=== PATIENT | female | born 1970 | race Caucasian/White ===

== ENCOUNTER 2017-09-05 10:51 | Emergency (ER) | payer BC ==
[2017-09-05 10:56] VITALS: BMI 22.4
[2017-09-05] MEDS ORDERED: KETOROLAC TROMETHAMINE 15 MG/ML VIAL ONE (11:07)
[2017-09-05] MEDS ORDERED: KETOROLAC TROMETHAMINE 15 MG/ML VIAL IVPUSH ONE (11:09)
[2017-09-05] MEDS ORDERED: SODIUM CHLORIDE 1,000 ML IV STA ×2 (11:09→13:28)
[2017-09-05] MEDS ORDERED: TAMSULOSIN HCL 0.4 MG CAP.ER.24H (FP) ONE (11:24)
[2017-09-05 11:25] LABS: BASO % 0.7 % (0-2.0); EOS % 0.2 % (0-4.5); HEMOGLOBIN 13.8 GM/dL (10.7-15.3); LYMPH % 22.2 % (8-40); MCH 30.2 pg (25.7-33.7); MCHC 35.4 g/dl (32.0-36.0); MEAN CELL VOLUME 85.4 fl (80-96); MEAN PLT VOLUME 7.2 fl (7.5-11.1); MONO % 7.7 % (3.8-10.2); NEUT % 69.2 % (42.8-82.8); PLATELET COUNT 308 K/MM3 (134-434); RBC 4.56 M/mm3 (3.60-5.2)
[2017-09-05] MEDS: TAMSULOSIN HCL 0.4 MG CAP.ER.24H (FP) PO ONE ×2 (11:28→11:55)
[2017-09-05] MEDS ORDERED: morphine CARPU-JECT 4 MG/1 ML DISP.SYRIN IVPUSH ONE ×2 (11:29→14:40)
[2017-09-05] MEDS ORDERED: morphine SULFATE 4 MG/ML VIAL ONE ×2 (11:29→14:42)
--- NOTE | 2017-09-05 11:43 | PDOC ---
History of Present Illness - General Chief Complaint: Pain, Acute Stated Complaint: ABD PAIN Time Seen by Provider: 09/05/17 10:58 History Source: Patient Exam Limitations: No Limitations - History of Present Illness Initial Comments: 09/05/17 12:19 47F with pmh of kidney stones presents to the ed for left 10/10 flank pain radiating to the groin and vomiting since early this morning. She states that this feels like her previous episodes of kidney stones in the past. Went to [facility] this morning and was told her had microscopic blood in the urine. Came to ER for evaluation. Past History - Past Medical History Allergies/Adverse Reactions: Allergies Allergy/AdvReac Type Severity Reaction Status Date / Time No Known Allergies Allergy Verified 09/05/17 10:53 Home Medications: Ambulatory Orders Oxycodone HCl/Acetaminophen [Percocet 5-325 mg Tablet] 1 tab PO Q6H #5 tablet MDD 2 09/05/17 COPD: No Disorders: Yes (H/O KIDNEY STONES) - Immunization History Immunization Up to Date: Yes - Suicide/Smoking/Psychosocial Hx Smoking Status: No Smoking History: Never smoked Number of Cigarettes Smoked Daily: 0 Hx Alcohol Use: No Drug/Substance Use Hx: No Substance Use Type: None Hx Substance Use Treatment: No Review of Systems - Review of Systems Able to Perform ROS?: Yes Is the patient limited Danish proficient: No Constitutional: No: Chills, Diaphoresis, Fever, Loss of Appetite HEENTM: No: Symptoms Reported Respiratory: No: Symptoms reported Cardiac (ROS): No: Symptoms Reported ABD/GI: Yes: Nausea, Vomiting. No: Abdominal Distended, Abd. Pain w/ defecation , Blood Streaked Bowels, Constipated, Diarrhea, Difficulty Swallowing, Poor Appetite, Poor Fluid Intake, Indigestion, Abdominal cramping : Yes: Flank Pain. No: Burning, Dysuria, Discharge, Hematuria Musculoskeletal: No: Symptoms Reported Integumentary: No: Symptoms Reported Neurological: No: Symptoms reported All Other Systems: Reviewed and Negative *Physical Exam - Vital Signs Last Vital Signs Temp Pulse Resp BP Pulse Ox 97.9 F 76 20 116/54 100 09/05/17 10:54 09/05/17 10:54 09/05/17 10:54 09/05/17 10:54 09/05/17 10:54 - Physical Exam General Appearance: Yes: Nourished, Appropriately Dressed, Moderate Distress HEENT: positive: EOMI, JENNA, Normal ENT Inspection Respiratory/Chest: positive: Lungs Clear, Normal Breath Sounds. negative: Chest Tender, Respiratory Distress Cardiovascular: positive: Regular Rhythm, Regular Rate, S1, S2 Gastrointestinal/Abdominal: positive: Normal Bowel Sounds, Flat, Soft. negative : Tender Musculoskeletal: positive: Normal Inspection, CVA Tenderness (L) Extremity: positive: Normal Capillary Refill, Normal Inspection, Normal Range of Motion Integumentary: positive: Normal Color, Dry, Warm Neurologic: positive: Fully Oriented, Alert, Normal Mood/Affect, Normal Response , Motor Strength 09/06 ED Treatment Course - LABORATORY CBC & Chemistry Diagram: 09/05/17 11:20 09/05/17 11:20 - ADDITIONAL ORDERS Additional order review: 09/05/17 11:20 RBC 4.56 MCV 85.4 MCHC 35.4 RDW 13.0 MPV 7.2 L Neutrophils % 69.2 Lymphocytes % 22.2 Monocytes % 7.7 Eosinophils % 0.2 Basophils % 0.7 - RADIOLOGY Radiology Studies Ordered: Category Date Time Status KIDNEY / RENAL US [US] Stat Ultrasound 09/05/17 11:32 Ordered PELVIC / BLADDER US [US] Stat Ultrasound 09/05/17 11:30 Ordered - Medications Given in the ED: ED Medications Discontinued Medications Generic Name Dose Route Start Last Admin Trade Name Freq PRN Reason Stop Dose Admin Ketorolac Tromethamine 15 mg 09/05/17 11:09 09/05/17 11:14 Toradol Injection - IVPUSH 09/05/17 11:10 15 mg ONCE ONE Administration Morphine Sulfate 4 mg 09/05/17 11:29 09/05/17 11:35 Morphine Injection - IVPUSH 09/05/17 11:30 4 mg ONCE ONE Administration Tamsulosin HCl 0.4 mg 09/05/17 11:09 09/05/17 11:28 Flomax - PO 09/05/17 11:10 Not Given ONCE ONE Medical Decision Making - Medical Decision Making 09/05/17 13:54 47F with pmh of kidney stones presents to the ed for left 10/10 flank pain radiating to the groin and vomiting since early this morning. 09/05/17 14:02 Pain control, fluids, basic labs, UA and urine culture Low suspicion for pelvic etiology 09/05/17 14:09 Ultrasound: Likely small nonobstructing right renal stones. Mild left renal hydronephrosis Partially distended urinary bladder without wall thickening or layering stones. Bilateral ureteral jets were identified. No postvoid urine residue is present. Normal-appearing anteverted uterus and normal thickness of the endometrial stripe. Both ovaries were not visualized Patient declines pelvic exam. Has ruptured cyst in the past, this is more similar to kidney stones. Feels better with management. Will discharge with urology follow up. *DC/Admit/Observation/Transfer Diagnosis at time of Disposition: Nephrolithiasis - Discharge Dispostion Disposition: HOME Condition at time of disposition: Improved Admit: No - Referrals Referrals: Macario Bailey MD [Staff Physician] - - Patient Instructions Printed Discharge Instructions: DI for Kidney Stones Additional Instructions: Follow up with Dr. Bailey for Urology follow up. Come back to the Emergency department for any new, worsening or concerning symptoms such as fever, intolerable pain, difficulty urinating or vomiting. - Post Discharge Activity
[2017-09-05 11:54] LABS: ALBUMIN 3.9 g/dl (3.4-5.0); ANION GAP 8 (8-16); BLOOD UREA NITROGEN 15 mg/dL (7-18); CALCIUM 8.7 mg/dL (8.5-10.1); CHLORIDE 108 mmol/L (98-107); CO2 23 mmol/L (21-32); CREATININE 0.9 mg/dL (0.55-1.02); GLUCOSE,RANDOM 138 mg/dL (74-106); POTASSIUM 3.9 mmol/L (3.5-5.1); SGOT/AST 15 U/L (15-37); SGPT/ALT 17 U/L (12-78); SODIUM 139 mmol/L (136-145)
[2017-09-05 11:56] LABS: ALK PHOS 55 U/L (45-117); BILIRUBIN,TOTAL 0.7 mg/dL (0.2-1.0); TOT PROT 7.2 g/dl (6.4-8.2)
[2017-09-05 13:20] LABS: URINE APPEARANCE CLEAR; URINE BILIRUBIN NEGATIVE (<2.0 mg/dL); URINE COLOR STRAW; URINE GLUCOSE (UA) NEGATIVE (NEGATIVE); URINE KETONE NEGATIVE (NEGATIVE); URINE LEUK ESTERASE NEGATIVE (NEGATIVE); URINE NITRITE NEGATIVE (NEGATIVE); URINE PROTEIN NEGATIVE (NEGATIVE); URINE UROBILINOGEN NEGATIVE mg/dL (0.2-1.0)
[2017-09-05 13:25] LABS: EPI CELLS RARE /HPF (FEW); URINE BACTERIA RARE /hpf (NONE SEEN); URINE MUCUS RARE
[2017-09-05] MEDS ORDERED: morphine SULFATE 4 MG/ML VIAL IVPUSH ONE (13:55)
[2017-09-05 14:10] VITALS: PULSE 72
--- NOTE | 2017-09-05 14:20 | PDOC ---
Attending Attestation - HPI HPI: 09/05/17 14:26 The patient is a 47 year old female, with a significant PMH of kidney stones and ovarian cyst, who presents to the emergency department with sudden onset of left flank pain and urinary retention since this morning. The patient states she went to [facility] this morning for evaluation which detected micro hematuria and sent her here to the ED for further evaluation. The patient states her symptoms feel the same as previous kidney stones. The patient denies chest pain, shortness of breath, headache and dizziness. Denies fever, chills, nausea, vomit, diarrhea and constipation. Allergies: NKA - Physicial Exam PE: 09/05/17 14:27 Vitals: Triage vital signs reviewed General Appearance: (+) Mild distress. Well nourished, well developed Head: Atraumatic Eyes: Pupils equal reactive round, extraocular movement intact Neck: Supple; No nuchal rigidity Chest Wall: Nontender Cardiac: Regular rate and rhythm, no murmurs, no rubs, no gallops Lungs: Clear to auscultation bilateral, good air movement bilaterally Back: (+) Mild CVA tenderness. Abdomen: (+) Left lower quadrant tenderness. No guarding, no rebound. Soft, non -distended. Rectal: Exam deferred Extremities: Full range of motion to all extremities, no cyanosis, clubbing, or edema Skin: Warm and dry, no rashes or lesions, no rash, no petechiae Neuro: AOX3; Cranial Nerves 2-12 grossly intact, Strength intact to all extremities, Sensation intact to all extremities. Normal gait. Psych: Normal mood, normal affect - Medical Decision Making 09/05/17 14:27 The patient is a 47 year old female, with a significant PMH of kidney stones and ovarian cyst, who presents to the emergency department with left flank pain and urinary retention since this morning. Plan: Labs, Medications, Kidney/Renal US, Pelvic/Bladder US. Documentation prepared by Denton Henson, acting as medical records assistant for Edouard Merino MD. <Denton Henson - Last Filed: 09/05/17 14:28> - Resident Resident Name: Geronimo Roach - ED Attending Attestation I have performed the following: I have examined & evaluated the patient, The case was reviewed & discussed with the resident, I agree w/resident's findings & plan, Exceptions are as noted - Medical Decision Making Reevaluation patient feels much better after pain medication. Patient deferred pelvic exam and transvaginal ultrasound to rule out ovarian pathology patient feels this is 100 consistent with her previous kidney stones. Patient also refused CT given multiple CTs in the past which I felt was reasonable given her age description of pain history and examination. Patient is nontoxic no fever no white count We'll discharge home with urology follow-up Findings, the need for follow-up and strict return instructions discussed with patient. <Edouard Merino - Last Filed: 09/05/17 16:20>
[2017-09-05] MEDS ORDERED: KETOROLAC TROMETHAMINE 30 MG/1 ML VIAL IVPUSH ONE (14:40)
[2017-09-05] MEDS ORDERED: KETOROLAC TROMETHAMINE 30 MG/1 ML VIAL ONE (14:42)
[2017-09-05 15:30] VITALS: BP 127/83; TEMP 98.9
== END 2017-09-05 15:29 | disposition home or self-care (01) ==
LOC: JER 10:51
PROC: 3E0337Z Introduction of Electrolytic and Water Balance Substance into Peripheral Vein, Percutaneous Approach (ICD-10-PCS; principal; 2017-09-05)
PROC: 3E033NZ Introduction of Analgesics, Hypnotics, Sedatives into Peripheral Vein, Percutaneous Approach (ICD-10-PCS; 2017-09-05)
PROC: 3E0333Z Introduction of Anti-inflammatory into Peripheral Vein, Percutaneous Approach (ICD-10-PCS; 2017-09-05)
DX: N13.2 Hydronephrosis with renal and ureteral calculous obstruction (principal); Z87.442 Personal history of urinary calculi
CPT/HCPCS: 36415; 76775-TC; 76856-TC; 80053; 81003; 81015; 84703; 85025; 87086; 99283-25; J7030

== ENCOUNTER 2017-10-06 12:09 | Day surgery (SDC) | payer BC ==
[2017-10-03 12:53] VITALS: BMI 23.3
[2017-10-06] MEDS ORDERED: MIDAZOLAM HCL 2 MG/2 ML SINGLE DOSE VIAL ONE ×2 (14:01)
[2017-10-06] MEDS ORDERED: fentaNYL CITRATE 250 MCG/5 ML VIAL ONE (14:06)
--- NOTE | 2017-10-06 14:33 | OP ---
Operative Note - Note: Operative Date: 10/06/17 Pre-Operative Diagnosis: Left kidney stone Operation: Left ESWL Findings: 5 mm mid pole Left kidney stone Post-Operative Diagnosis: Same as Pre-op Surgeon: Macario Bailey Anesthesia: Fractional
[2017-10-06 14:47] VITALS: TEMP 98.5
[2017-10-06 15:58] VITALS: BP 118/60; PULSE 70
--- NOTE | 2017-10-06 20:59 | OP ---
DATE OF OPERATION: 10/06/2017 PREOPERATIVE DIAGNOSIS: Left renal stone. POSTOPERATIVE DIAGNOSIS: Left renal stone. PROCEDURE: Left extracorporeal shock wave lithotripsy. ATTENDING: Macario Larsen MD ANESTHESIA: Fractional. DESCRIPTION OF OPERATION: The patient was brought in the operating room, placed in supine position on the operating room table. Ultrasonography and fluoroscopy were performed. A 5-mm left mid-pole stone was identified. At this point, fractional anesthesia and preoperative antibiotics were administered. Extracorporeal shock wave lithotripsy was then started; 2500 impulses at 17 joules of power were administered to the stone. Excellent fragmentation was noted under real-time ultrasonography and fluoroscopy. No complications were noted. The disposition of the patient was to the recovery room. Bill [id number]
== END 2017-10-06 16:01 | disposition home or self-care (01) ==
LOC: JASU-SURG 12:09
PROVIDERS: ATTEND Urology
PROC: 0TF4XZZ Fragmentation in Left Kidney Pelvis, External Approach (ICD-10-PCS; principal; 2017-10-06 14:00)
DX: N20.0 Calculus of kidney (principal)
CPT/HCPCS: 84703; 94760

== ENCOUNTER 2022-03-26 10:29 | Emergency (ER) | payer BC ==
[2022-03-26] MEDS ORDERED: IBUPROFEN 400 MG TABLET (FP) PO ONE (10:31)
[2022-03-26 10:35] VITALS: BP 152/79; PULSE 80; RESP 18; TEMP 98.3; BMI 23.3
[2022-03-26] MEDS ORDERED: ACETAMINOPHEN 325 MG TABLET (FP) PO ONE (10:37)
[2022-03-26] MEDS ORDERED: ACETAMINOPHEN 325 MG TABLET (FP) ONE (10:41)
== END 2022-03-26 10:58 | disposition home or self-care (01) ==
LOC: FER 10:29
DX: M54.50 Low back pain, unspecified (principal); M54.2 Cervicalgia
CPT/HCPCS: 99283-25